=== PATIENT | female | born 1960 | race Caucasian/White ===

== ENCOUNTER → 2017-05-07 | Outpatient (CLI) | payer BC ==
--- NOTE | 2017-05-07 10:53 | P.HPOB ---
History of Present Illness H&P Date: 05/07/17 Chief Complaint: The patient is here for her routine gynecologic exam and mammogram. This is a 57-year-old with Christiano. 2000. She is status post DUNCAN BSO for benign reasons. The patient is on low-dose ERT for menopausal symptoms. She decreased her Estrace to 0.5 mg every other day. She states she has been doing fairly well with this. She does have occasional emotional changes in this is the main reason she continues to take ERT. She is otherwise without gynecologic complaints. Review of Systems She is gained about 15 pounds over the last 2 years. She denies respiratory, cardiac, or G.I. problems. Past Medical History Past Medical History: Hyperlipidemia Past Surgical History: Appendectomy, Section, Hysterectomy (DUNCAN BSO in 1999) Smoking Status: Former smoker Past Alcohol Use History: Daily (She has up to 4 bottles of wine per week.) Past Drug Use History: None Reported Medications and Allergies Home Medications and Allergies Comment(s): Estradiol 0.5 mg 1 every other day. Calcium with vitamin D daily Exam - Vital Signs Vital signs: Blood pressure 113/74, height 5 feet 6 inches, weight 157 pounds, tension 97.4, pulse 65. This is a well-developed well-nourished white female who is alert and oriented times 3 in no acute distress. HEENT: Within normal limits. NECK: Supple without mass or thyromegaly. CHEST AND LUNGS: Clear to auscultation. HEART: Regular rate and rhythm. BREASTS: Are without mass or discharge. AXILLARY EXAM: Negative for adenopathy. BACK: Negative for CVA tenderness. ABDOMEN: Soft, nontender, without palpable masses. PELVIC EXAM: Normal external genitalia with minimal atrophy. Vagina appear normal with minimal atrophy. There is no unusual discharge. There are no palpable adnexal masses or tenderness. RECTAL EXAM: recto vaginal exam is negative for mass or tenderness and is negative for occult blood. EXTREMITIES: Nontender. IMPRESSION: 1. 57-year-old menopausal female who is status post DUNCAN BSO for benign reasons. 2. Doing well on low-dose ERT for menopausal symptoms which include emotional changes. 3. History of elevated cholesterol. PLAN: 1. Pap smears have been discontinued. 2. Self breast examination was discussed. 3. Mammogram will be done today. 4. Lab studies will include fasting lipid profile and comprehensive chemistry panel. 5. I have recommended that she decrease alcohol consumption. 6. I recommended screening colonoscopy and Dr. Vines's name was given to the patient for this. 7. She will try to wean off of ERT over the upcoming year. 8. She will return in one year. 9. I recommended that she established with a primary care physician.
[2017-05-07 11:58] LABS: ALT 38 U/L (9-52); AST 27 U/L (14-36); Alkaline Phosphatase 65 U/L (38-126); Anion Gap 12 mmol/L; Blood Urea Nitrogen 9 mg/dL (7-17); Calcium 10.1 mg/dL (8.4-10.2); Carbon Dioxide 28 mmol/L (22-30); Chloride 98 mmol/L (98-107); Cholesterol 263 mg/dL (<200); Glucose 90 mg/dL (74-99); HDL Cholesterol 89 mg/dL (40-60); Non-African American GFR(MDRD) >60 (>60 ml/min/1.73 sqM); Sodium 138 mmol/L (137-145); Total Bilirubin 0.7 mg/dL (0.2-1.3); Total Protein 7.8 g/dL (6.3-8.2)
--- NOTE | 2017-05-09 09:48 | MM ---
Reason for exam: screening (asymptomatic). Last mammogram was performed 1 year and 5 months ago. History: Patient is postmenopausal. Family history of premenopausal breast cancer in grandmother at age 45. Taking estrogen for 14 years 9 months beginning at age 40. Physical Findings: A clinical breast exam by your physician is recommended on an annual basis and results should be correlated with mammographic findings. MG Screening Mammo w CAD Bilateral CC and MLO view(s) were taken. Prior study comparison: November 23, 2015, bilateral MG screening mammo w CAD. October 06, 2014, bilateral MG screening mammo w CAD. September 23, 2013, bilateral digital screening mammo w/CAD. The breast tissue is heterogeneously dense. This may lower the sensitivity of mammography. No significant changes when compared with prior studies. ASSESSMENT: Negative, BI-RAD 1 RECOMMENDATION: Routine screening mammogram of both breasts in 1 year.
== END | disposition home or self-care (01) ==
LOC: WWCWWP 09:50
PROVIDERS: ATTEND Obstetrics & Gynecology
DX: Z12.31 Encounter for screening mammogram for malignant neoplasm of breast (principal); Z00.00 Encounter for general adult medical examination without abnormal findings; E78.5 Hyperlipidemia, unspecified
CPT/HCPCS: 80061; 80053; G0202

== ENCOUNTER → 2018-07-29 | Outpatient (CLI) | payer BC ==
[2018-07-29 08:08] VITALS: PULSE 54; TEMP 97.6; BMI 25.8
[2018-07-29 08:13] VITALS: BP 124/77
--- NOTE | 2018-07-29 08:53 | P.HPOB ---
History of Present Illness H&P Date: 07/29/18 Chief Complaint: The patient is here for her routine gynecologic exam and mammogram. This is a 58-year-old with an LMP of 2000. The patient is status post DUNCAN BSO for benign reasons. The patient was on low-dose ERT in the form of Estrace 0.5 mg every other day, however, she states she was having increased crying spells and she felt she was feeling mentally less sharp so she increased ERT to daily. She states she noticed an improvement in her emotional changes and mental sharpness. She increased it to daily about 3 weeks ago. She is otherwise without gynecologic complaints. Review of Systems The patient has gained 3 pounds over the last year. She denies respiratory or cardiac problems. G.I.: occasional nausea in the morning but she has had this for many years. She feels that drinking wine seems to help with this symptom. 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 She has no other history of STDs. She is status post DUNCAN BSO for endometriosis. 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 - Past Family History Father Family Medical History: Coronary Artery Disease (CAD), Dementia Mother Family Medical History: Cancer (Lymphoma) Additional Family Medical History / Comment(s): A grandmother had breast cancer. Medications and Allergies Home Medications Medication Instructions Recorded Confirmed Type Calcium Carbonate [Calcium] 600 mg PO DAILY 07/29/18 07/29/18 History Cholecalciferol [Vitamin D3] 1,000 unit PO DAILY 07/29/18 07/29/18 History Estradiol 0.5 mg PO DAILY 07/29/18 07/29/18 History Allergies Allergy/AdvReac Type Severity Reaction Status Date / Time No Known Allergies Allergy Unverified 07/29/18 08:01 Exam Vital Signs Temp Pulse BP 07/29/18 08:11 97.6 F 54 L 124/77 07/29/18 08:06 97.6 F 54 L Intake and Output 07/28/18 07/29/18 07/29/18 22:59 06:59 14:59 Other: Weight 72.575 kg Height 5'6", weight 160 pounds, BMI 25.8. This is a well-developed well-nourished white female who is alert and oriented times 3 in no acute distress. HEENT: Within normal limits. NECK: Supple without mass or thyromegaly. CHEST AND LUNGS: Clear to auscultation. HEART: Regular rate and rhythm. BREASTS: Are without mass or discharge. AXILLARY EXAM: Negative for adenopathy. BACK: Negative for CVA tenderness. ABDOMEN: Soft, nontender, without palpable masses. PELVIC EXAM: External genitalia appears normal with minimal atrophy. Vagina appears normal with minimal atrophy. There is no evidence of prolapse. Bimanual examination is negative for mass or tenderness. RECTAL EXAM: Rectovaginal exam is negative for mass or tenderness and is negative for occult blood. EXTREMITIES: Nontender. IMPRESSION: 1. 58-year-old menopausal female status post DUNCAN BSO for benign reasons with normal gynecologic exam. 2. The patient is on low-dose ERT for menopausal symptoms which include emotional changes. She had worsening symptoms that improved with change of ERT to one daily. PLAN: 1. Pap smears have been discontinued. 2. Self breast awareness. 3. Screening mammogram will be done today. 4. Osteoporosis prevention was discussed. 5. We had a long discussion regarding ERT including the possible slight increased risk for stroke. She will continue Estrace 0.5 mg daily at this time , but she will try to again wean off of it prior to her next annual visit. The prescription for ERT [facility]. 6. I have that she established with a primary care physician. She states she will do this before the end of the year. I also recommended that she follow up with that primary care physician for cholesterol testing and to arrange for a screening colonoscopy. I have recommended screening colonoscopy based on her age. 7. She will return in one year.
[2018-07-29 18:55] LABS: LDL Cholesterol,Calculated 132.2 mg/dL (0.0-131.0); VLDL Calculation 38.8 mg/dL (5.00-40.00)
--- NOTE | 2018-07-31 08:20 | MM ---
Reason for exam: screening (asymptomatic). Last mammogram was performed 1 year and 3 months ago. History: Patient is postmenopausal. Family history of premenopausal breast cancer in grandmother at age 45. Taking estrogen for 14 years 9 months beginning at age 40. Physical Findings: A clinical breast exam by your physician is recommended on an annual basis and results should be correlated with mammographic findings. MG 3D Screening Mammo W/Cad Bilateral CC and MLO view(s) were taken. Prior study comparison: May 07, 2017, bilateral MG screening mammo w CAD. November 23, 2015, bilateral MG screening mammo w CAD. The breast tissue is heterogeneously dense. This may lower the sensitivity of mammography. There is no discrete abnormality. ASSESSMENT: Negative, BI-RAD 1 RECOMMENDATION: Routine screening mammogram of both breasts in 1 year.
== END | disposition home or self-care (01) ==
LOC: WWCWWP 07:53
PROVIDERS: ATTEND Obstetrics & Gynecology
DX: Z12.31 Encounter for screening mammogram for malignant neoplasm of breast (principal); Z00.00 Encounter for general adult medical examination without abnormal findings; E87.0 Hyperosmolality and hypernatremia; E78.5 Hyperlipidemia, unspecified
CPT/HCPCS: 36415; 77063; 77067; 80061

== ENCOUNTER → 2019-11-10 | Outpatient (CLI) | payer BC ==
[2019-11-10 09:43] VITALS: BP 123/73; PULSE 57; RESP 18; TEMP 97.8
--- NOTE | 2019-11-10 10:24 | P.HPOB ---
History of Present Illness H&P Date: 11/10/19 Chief Complaint: The patient is here for her routine gynecologic exam and ma mmogram. This is a 59-year-old with an LMP of 2000. The patient is status post DUNCAN/BSO for benign reasons. The patient continues to take low-dose ERT in the form of Estrace 0.5 mg daily. She try to wean off earlier in the year and after 3 months of taking it every other day, she noticed increased crying and loss of focus. She states this improved after she went back to taking it daily. She is without gynecologic complaints. She still has not establish with a primary care physician. Review of Systems The patient has lost 10 pounds over the last year. She denies respiratory, cardiac, or G.I. problems. 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 She has no other history of STDs. She is status post DUNCAN BSO for endometriosis. History of Any Multi-Drug Resistant Organisms: None Reported Past Surgical History: Appendectomy, Section, Hysterectomy Additional Past Surgical History / Comment(s): DUNCAN/BSO in 1999. 1. Past Psychological History: No Psychological Hx Reported Smoking Status: Former smoker Past Alcohol Use History: Occasional (About 8 glasses of wine per week.) Additional Past Alcohol Use History / Comment(s): She quit smoking in 1986. 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 - Past Family History Father Family Medical History: Coronary Artery Disease (CAD), Dementia Mother Family Medical History: Cancer Additional Family Medical History / Comment(s): Lymphoma. A grandmother had breast cancer. Medications and Allergies Home Medications Medication Instructions Recorded Confirmed Type Calcium Carbonate [Calcium] 600 mg PO DAILY 07/29/18 11/10/19 History Cholecalciferol [Vitamin D3] 1,000 unit PO DAILY 07/29/18 11/10/19 History Estradiol 0.5 mg PO DAILY #90 tablet 07/29/18 11/10/19 Rx Celery Seed 1 tab PO DAILY 11/10/19 History Cyanocobalamin [Vitamin B-12] 500 mcg PO DAILY 11/10/19 11/10/19 History Fish Oil/Dha/Epa [Fish Oil 1,200 1 each PO 11/10/19 History mg Fish Oil] Tumeric 1 tab PO DAILY 11/10/19 History Allergies Allergy/AdvReac Type Severity Reaction Status Date / Time No Known Allergies Allergy Unverified 11/10/19 09:43 Exam Vital Signs Temp Pulse Resp BP Pulse Ox 11/10/19 09:40 97.8 F 57 L 18 123/73 99 Intake and Output 11/09/19 11/10/19 11/10/19 22:59 06:59 14:59 Other: Weight 68.039 kg Height 5 feet 5 inches, weight 150 pounds, BMI 25.0. This is a well-developed well-nourished white female who is alert and oriented times 3 in no acute distress. HEENT: Within normal limits. NECK: Supple without mass or thyromegaly. CHEST AND LUNGS: Clear to auscultation. HEART: Regular rate and rhythm. BREASTS: Are without mass or discharge. AXILLARY EXAM: Negative for adenopathy. BACK: Negative for CVA tenderness. ABDOMEN: Soft, nontender, without palpable masses. PELVIC EXAM: External genitalia appears normal with mild atrophy. Vagina appears normal with mild atrophy. There is no evidence of prolapse. Bimanual ex amination is negative for mass or tenderness. RECTAL EXAM: Rectovaginal exam is negative for mass or tenderness and is negative for occult blood. EXTREMITIES: Nontender. IMPRESSION: 1. 59-year-old menopausal female status post DUNCAN/BSO for benign reasons, with normal gynecologic exam. 2. On low-dose ERT for menopausal symptoms. She had worsening of symptoms when she try to wean off of it this year. PLAN: 1. Pap smears have been discontinued. 2. Self breast awareness was discussed with the patient. 3. Screening mammogram will be done today. 4. Osteoporosis prevention was discussed. I have stressed the importance of adequate calcium, vitamin D and regular exercise. Recommended amounts of calcium and vitamin D were also discussed. 5. I have recommended screening colonoscopy since she has not had this done. Names of physicians that can do screening colonoscopies were given to the patient. I have also recommended that she establish with a primary care physician. She states she will look into doing this. 6. She is requesting screening blood work and she is fasting. The following will be done today: Fasting lipid profile, comprehensive chem panel, and CBC. 7. She will again try to wean off from ERT this year. I have recommended that she try skipping every third day and if she is successful with this, she can go to every other day and eventually off. She states she would like to be able to wean off in the near future. The electronic prescription will be sent to [facility]. 8. She was advised to return in one year for her annual well woman exam.
[2019-11-10 11:29] LABS: HCT 39.9 % (34.0-46.0); HGB 13.3 gm/dL (11.4-16.0); MCH 31.8 pg (25.0-35.0); MCHC 33.3 g/dL (31.0-37.0); MCV 95.6 fL (80.0-100.0); Mean Platelet Volume 7.6; Platelet Count 302 k/uL (150-450); RBC 4.18 m/uL (3.80-5.40); RDW 12.3 % (11.5-15.5); WBC 5.8 k/uL (3.8-10.6)
[2019-11-10 17:11] LABS: African American GFR (CKD) 94.9 (60.0-200.0); Albumin 4.4 g/dL (3.80-4.90); Albumin/Globulin Ratio 1.91 (1.60-3.17); Anion Gap 8.3 mmol/L (4.00-12.00); Calcium 9.8 mg/dL (8.7-10.3); Carbon Dioxide 27.7 mmol/L (21.6-31.8); Globulin 2.3 g/dL (1.6-3.3); Non-African American GFR(CKD) 81.8 (60.0-200.0); Potassium 4.7 mmol/L (3.5-5.5); Total Bilirubin 0.5 mg/dL (0.2-1.2); Total Protein 6.7 g/dL (6.2-8.2)
[2019-11-10 17:12] LABS: Chol/HDL Ratio 2.89; LDL Cholesterol,Calculated 101.2 mg/dL (0.0-131.0); VLDL Calculation 51.8 mg/dL (5.00-40.00)
--- NOTE | 2019-11-11 08:25 | MM ---
Reason for exam: screening (asymptomatic). Last mammogram was performed 1 year and 3 months ago. History: Patient is postmenopausal. Family history of premenopausal breast cancer in grandmother at age 45. Taking estrogen for 14 years 9 months beginning at age 40. Physical Findings: A clinical breast exam by your physician is recommended on an annual basis and results should be correlated with mammographic findings. MG Screening Mammo w CAD Bilateral CC and MLO view(s) were taken. Prior study comparison: July 29, 2018, bilateral MG 3d screening mammo w/cad. May 07, 2017, bilateral MG screening mammo w CAD. The breast tissue is heterogeneously dense. This may lower the sensitivity of mammography. There is no discrete abnormality. No significant changes when compared with prior studies. ASSESSMENT: Negative, BI-RAD 1 RECOMMENDATION: Routine screening mammogram of both breasts in 1 year.
== END | disposition home or self-care (01) ==
LOC: WWCWWP 09:18
PROVIDERS: ATTEND Obstetrics & Gynecology
DX: Z12.31 Encounter for screening mammogram for malignant neoplasm of breast (principal)
CPT/HCPCS: 36415; 77067; 80053; 80061; 85027

== ENCOUNTER → 2021-01-11 | Outpatient (CLI) | payer BC ==
[2021-01-11 10:57] VITALS: BP 116/73; PULSE 68; RESP 18; TEMP 97.9
--- NOTE | 2021-01-11 11:51 | P.HPOB ---
History of Present Illness H&P Date: 01/11/21 Chief Complaint: The patient is here for her routine gynecologic exam and ma mmogram. This is a 60-year-old with an LMP of 2000. The patient is status post DUNCAN/BSO for benign reasons. The patient continues to be on low-dose ERT in the form of estradiol transdermal patches 0.025 mg changed twice weekly. She states that when she decreases her estrogen dose, she tends to get weepy very easily and she does not feel that this is a very good time to wean off of the ERT because of increased stress in her life. She is without gynecologic complaints. She is not sexually active. Review of Systems The patient has gained 6 pounds over the last year. She denies respiratory, cardiac, or G.I. problems. 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 She has no other history of STDs. She is status post DUNCAN BSO for endometriosis. History of Any Multi-Drug Resistant Organisms: None Reported Past Surgical History: Appendectomy, Section, Hysterectomy Additional Past Surgical History / Comment(s): DUNCAN/BSO in 1999. 1. Past Psychological History: No Psychological Hx Reported Smoking Status: Former smoker Past Alcohol Use History: Occasional (9 drinks per week) Additional Past Alcohol Use History / Comment(s): She quit smoking in 1986. Past Drug Use History: None Reported Additional History: She has been since 1984. She states there have been some marital difficulties and they are not sexually active. 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 - Past Family History Father Family Medical History: Coronary Artery Disease (CAD), Dementia Mother Family Medical History: Cancer Additional Family Medical History / Comment(s): Lymphoma. A grandmother had breast cancer. Medications and Allergies Home Medications Medication Instructions Recorded Confirmed Type Calcium Carbonate [Calcium] 600 mg PO DAILY 07/29/18 01/11/21 History Cholecalciferol [Vitamin D3] 1,000 unit PO DAILY 07/29/18 01/11/21 History Celery Seed 1 tab PO DAILY 11/10/19 01/11/21 History Cyanocobalamin [Vitamin B-12] 500 mcg PO DAILY 11/10/19 01/11/21 History Fish Oil/Dha/Epa [Fish Oil 1,200 1 each PO DAILY 11/10/19 01/11/21 History mg Fish Oil] Tumeric 1 tab PO DAILY 11/10/19 01/11/21 History Estradiol 0.05MG/24Hr Biwkptch 1 patch TRANSDERM Q84H 84 Days #12 11/17/19 01/11/21 Rx [Vivelle-Dot 0.05 MG] patch Allergies Allergy/AdvReac Type Severity Reaction Status Date / Time No Known Allergies Allergy Unverified 01/11/21 10:48 Exam Vital Signs Temp Pulse Resp BP Pulse Ox 01/11/21 10:51 97.9 F 68 18 116/73 99 Intake and Output 01/10/21 01/11/21 01/11/21 22:59 06:59 14:59 Other: Weight 70.76 kg Height 5 feet 5-1/2 inches, weight 156 pounds, BMI 25.6. This is a well-developed well-nourished white female who is alert and oriented times 3 in no acute distress. HEENT: Within normal limits. NECK: Supple without mass or thyromegaly. CHEST AND LUNGS: Clear to auscultation. HEART: Regular rate and rhythm. BREASTS: Are without mass or discharge. AXILLARY EXAM: Negative for adenopathy. BACK: Negative for CVA tenderness. ABDOMEN: Soft, nontender, without palpable masses. PELVIC EXAM: External genitalia appears normal with minimal atrophy. Vagina appears normal with minimal atrophy. There is no evidence of prolapse. Bimanual examination is negative for mass or tenderness. RECTAL EXAM: Rectovaginal exam is negative for mass or tenderness and is negative for occult blood. EXTREMITIES: Nontender. IMPRESSION: 1. 60-year-old menopausal female doing well on low-dose ERT in the form of transdermal estradiol 0.025 mg changed twice weekly. 2. Normal gynecologic exam. PLAN: 1. Pap smears have been discontinued. 2. Self breast awareness was discussed with the patient. 3. Screening mammogram will be done today. 4. We have had a long discussion regarding ERT. I have asked her to again try to wean down to the lowest effective dose and hopefully gradually wean off of ERT. We have discussed possible risks including the possible increased risk for blood clots and stroke on ERT. She understands these things and would like to wean off of ERT eventually, but because of stress in her life she does not feel that this is a good time to wean off of ERT. The electronic prescription for the transdermal estradiol patch will be sent to [facility]. 5. She states she plans on establishing with a primary care physician within the upcoming month. She plans on having blood work done including lipid profile through her PCP. She is aware that I feel that this testing is important since she does have a history of elevated cholesterol and elevated triglycerides. The reason I have changed her from oral ERT to transdermal ERT was to see if this would lower her triglycerides. I have offered or during the lipid profile, but she states she will do this with her PCP when she establishes with that person in the very near future. 6. I have also recommended screening colonoscopy which she states she will do through her PCP, once established. 7. Osteoporosis prevention was discussed. I have stressed the importance of adequate calcium, vitamin D and regular exercise. Recommended amounts of calcium and vitamin D were also discussed. I have recommended bone density testing at the age of 62. 8. She was advised to return in one year for her annual well woman exam.
--- NOTE | 2021-01-12 14:06 | MM ---
Reason for exam: screening (asymptomatic). Last mammogram was performed 1 year and 2 months ago. History: Patient is postmenopausal. Family history of premenopausal breast cancer in grandmother at age 45. Taking estrogen for 14 years 9 months beginning at age 40. Physical Findings: A clinical breast exam by your physician is recommended on an annual basis and results should be correlated with mammographic findings. MG Screening Mammo w CAD Bilateral CC and MLO view(s) were taken. Prior study comparison: November 10, 2019, bilateral MG screening mammo w CAD. July 29, 2018, bilateral MG 3d screening mammo w/cad. The breast tissue is heterogeneously dense. This may lower the sensitivity of mammography. Benign appearing calcifications in the right breast. No significant changes when compared with prior studies. ASSESSMENT: Benign, BI-RAD 2 RECOMMENDATION: Routine screening mammogram of both breasts in 1 year.
== END | disposition home or self-care (01) ==
LOC: WWCWWP 10:43
PROVIDERS: ATTEND Obstetrics & Gynecology
DX: Z01.419 Encounter for gynecological examination (general) (routine) without abnormal findings (principal); Z12.31 Encounter for screening mammogram for malignant neoplasm of breast; E78.5 Hyperlipidemia, unspecified; Z80.3 Family history of malignant neoplasm of breast; Z87.891 Personal history of nicotine dependence
CPT/HCPCS: 77067

== ENCOUNTER → 2022-02-20 | Outpatient (CLI) | payer BC ==
[2022-02-20 12:49] VITALS: BP 116/66; PULSE 72; RESP 17; TEMP 98.1
--- NOTE | 2022-02-20 13:32 | P.HPOB ---
History of Present Illness H&P Date: 02/20/22 Chief Complaint: The patient is here for her routine gynecologic exam and ma mmogram. This is a 61-year-old with an LMP of 2000. The patient is status post DUNCAN/BSO for benign reasons. She continues to be on low-dose ERT in the form of estradiol 0.025 patches. She was changing them every 3 days and try to wean changing them twice a week and she did fine with this. She try to do it every 4 days, but this lead to symptoms. Her main symptom that is improved with ERT is emotional changes and she does cry very easily at those times. She seems to be doing well with changing it 2 times per week. She now has a primary care physician. Lipid profiles have been done and her most recent one shows a triglyceride of approximately 80. This is much improved compared to when she was taking oral estrogen. She is without gynecologic complaints. Review of Systems The patient has lost 9 pounds over the last year. She denies respiratory, cardiac, or G.I. problems. 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 She has no other history of STDs. She is status post DUNCAN BSO for endometriosis. History of Any Multi-Drug Resistant Organisms: None Reported Past Surgical History: Appendectomy, Section, Hysterectomy Additional Past Surgical History / Comment(s): DUNCAN/BSO in 1999. 1. Colonoscopy 2020(next after 5yr). Past Psychological History: No Psychological Hx Reported Smoking Status: Former smoker Past Alcohol Use History: Occasional Additional Past Alcohol Use History / Comment(s): She quit smoking in 1986. Past Drug Use History: None Reported Additional History: She has been since 1984 and they are not sexually active in their relationship. 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 - Past Family History Father Family Medical History: Coronary Artery Disease (CAD), Dementia Mother Family Medical History: Cancer Additional Family Medical History / Comment(s): Lymphoma. A grandmother had breast cancer. Medications and Allergies Home Medications Medication Instructions Recorded Confirmed Type Calcium Carbonate [Calcium] 600 mg PO DAILY 07/29/18 02/20/22 History Cholecalciferol [Vitamin D3] 1,000 unit PO DAILY 07/29/18 02/20/22 History Celery Seed 1 tab PO DAILY 11/10/19 02/20/22 History Cyanocobalamin [Vitamin B-12] 500 mcg PO DAILY 11/10/19 02/20/22 History Fish Oil/Dha/Epa [Fish Oil 1,200 1 each PO DAILY 11/10/19 02/20/22 History mg Fish Oil] Tumeric 1 tab PO DAILY 11/10/19 02/20/22 History Estradiol 0.05MG/24Hr Biwkptch 1 patch TRANSDERM Q84H 84 Days #12 01/11/21 02/20/22 Rx [Vivelle-Dot 0.05 MG] patch Allergies Allergy/AdvReac Type Severity Reaction Status Date / Time No Known Allergies Allergy Unverified 02/20/22 12:40 Exam Vital Signs Temp Pulse Resp BP Pulse Ox 02/20/22 12:46 98.1 F 72 17 116/66 98 Intake and Output 02/19/22 02/20/22 02/20/22 22:59 06:59 14:59 Other: Weight 65.771 kg Height 5 feet 6 inches, weight 145 pounds, BMI 23.4. This is a well-developed well-nourished white female who is alert and oriented times 3 in no acute distress. HEENT: Within normal limits. NECK: Supple without mass or thyromegaly. CHEST AND LUNGS: Clear to auscultation. HEART: Regular rate and rhythm. BREASTS: Are without mass or discharge. AXILLARY EXAM: Negative for adenopathy. BACK: Negative for CVA tenderness. ABDOMEN: Soft, nontender, without palpable masses. PELVIC EXAM: External genitalia appears normal with mild atrophy. Vagina appears normal mild atrophy. There is no evidence of prolapse. Bimanual examination is negative for mass or tenderness. RECTAL EXAM: Rectovaginal exam is negative for mass or tenderness and is negative for occult blood. EXTREMITIES: Nontender. IMPRESSION: 1. 61-year-old menopausal female status post DUNCAN/BSO for for benign reasons, with normal gynecologic exam. 2. Doing well on transdermal low-dose ERT. When she tried to wean down from the ERT, she had worsening emotional changes. PLAN: 1. Pap smears have been discontinued. 2. Self breast awareness was discussed with the patient. We have also discussed symptoms associated with inflammatory breast cancer. 3. Screening mammogram will be done today. 4. Continue estradiol 0.025 mg patches changed twice weekly. The electronic prescription will be sent to [facility]. 5. Osteoporosis prevention was discussed. I have stressed the importance of adequate calcium, vitamin D and regular exercise. Recommended amounts of calcium and vitamin D were also discussed. We will plan on doing bone density testing in 1 year. 6. She has completed her Covid vaccination series, but did not receive a booster. 7. She will continue to try to wean from the ERT. She was advised to return in one year for her annual well woman exam.
== END ==
LOC: WWCWWP 12:34
PROVIDERS: ATTEND Obstetrics & Gynecology
DX: Z01.419 Encounter for gynecological examination (general) (routine) without abnormal findings (principal); Z12.31 Encounter for screening mammogram for malignant neoplasm of breast; Z90.710 Acquired absence of both cervix and uterus; Z90.722 Acquired absence of ovaries, bilateral; Z80.3 Family history of malignant neoplasm of breast; Z79.890 Hormone replacement therapy; F39 Unspecified mood [affective] disorder; E78.5 Hyperlipidemia, unspecified; Z87.891 Personal history of nicotine dependence
CPT/HCPCS: 77067

== ENCOUNTER → 2023-03-26 | Outpatient (CLI) | payer BC ==
[2023-03-26 10:49] VITALS: BP 109/75; PULSE 57; RESP 16; TEMP 98.3
--- NOTE | 2023-03-26 12:21 | P.HPOB ---
History of Present Illness H&P Date: 03/26/23 Chief Complaint: The patient is here for her routine gynecologic exam and ma mmogram. This is a 70-year-old with an LMP of 2000. The patient is status post DUNCAN/BSO for benign reasons. She continues to use a low-dose ERT in the form of estradiol 0.025 patches changed twice weekly. She has tried weaning by using half a patch twice weekly, but she states she noticed increased sadness and emotional changes when she tried to wean down. She has gone back to the origin al dose with improvement of these emotional changes. She is without gynecologic complaints at this time. Review of Systems The patient has lost 13 pounds over the last year. She attributes this to eating healthier. She denies respiratory, cardiac, or G.I. problems. Past Medical History Past Medical History: Cancer, Hyperlipidemia Additional Past Medical History / Comment(s): SKIN CANCER removed from the right arm 2022. 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 She has no other history of STDs. She is status post DUNCAN BSO for endometriosis. History of Any Multi-Drug Resistant Organisms: None Reported Past Surgical History: Appendectomy, Section, Hysterectomy Additional Past Surgical History / Comment(s): DUNCAN/BSO in 1999. 1. Colonoscopy 2020(next after 5yr). SKIN CANCER REMOVAL RIGHT ELBOW. Past Psychological History: No Psychological Hx Reported Smoking Status: Former smoker Past Alcohol Use History: Occasional (10 per week) Additional Past Alcohol Use History / Comment(s): She quit smoking in 1986. Past Drug Use History: None Reported Additional History: She has been since 1984 and they are not sexually active in their relationship. 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 - Past Family History Father Family Medical History: Coronary Artery Disease (CAD), Dementia Mother Family Medical History: Cancer Additional Family Medical History / Comment(s): Lymphoma. A grandmother had breast cancer. Medications and Allergies Home Medications Medication Instructions Recorded Confirmed Type Calcium Carbonate [Calcium] 600 mg PO DAILY 07/29/18 03/26/23 History Cholecalciferol [Vitamin D3] 1,000 unit PO DAILY 07/29/18 03/26/23 History Celery Seed 1 tab PO DAILY 11/10/19 03/26/23 History Cyanocobalamin [Vitamin B-12] 500 mcg PO DAILY 11/10/19 03/26/23 History Fish Oil/Dha/Epa [Fish Oil 1,200 1 each PO DAILY 11/10/19 03/26/23 History mg Fish Oil] Tumeric 1 tab PO DAILY 11/10/19 03/26/23 History estradioL [estradioL (Twice 1 patch TRANSDERM DIRECTED #24 02/20/22 03/26/23 Rx Weekly) 0.025 mg Patch] patch Magnesium Oxide [Magnesium] 500 mg PO DAILY 03/26/23 03/26/23 History Allergies Allergy/AdvReac Type Severity Reaction Status Date / Time No Known Allergies Allergy Unverified 03/26/23 10:42 Exam Vital Signs Temp Pulse Resp BP Pulse Ox 03/26/23 10:46 98.3 F 57 L 16 109/75 100 Intake and Output 03/25/23 03/26/23 03/26/23 22:59 06:59 14:59 Other: Weight 59.874 kg Height 5 feet 6 inches, weight 132 pounds, BMI 21.3. This is a well-developed well-nourished white female who is alert and oriented times 3 in no acute distress. HEENT: Within normal limits. NECK: Supple without mass or thyromegaly. CHEST AND LUNGS: Clear to auscultation. HEART: Regular rate and rhythm. BREASTS: Are without mass or discharge. AXILLARY EXAM: Negative for adenopathy. BACK: Negative for CVA tenderness. ABDOMEN: Soft, nontender, without palpable masses. PELVIC EXAM: External genitalia appears normal with mild atrophy. Vagina appears normal with mild atrophy. There is no evidence of prolapse. Bimanual examination is negative for mass or tenderness. RECTAL EXAM: Rectovaginal exam is negative for mass or tenderness and is negative for occult blood. EXTREMITIES: Nontender. IMPRESSION: 1. 62-year-old menopausal female status post DUNCAN/BSO for benign reasons, with normal gynecologic exam. 2. Doing well on low-dose trans-dermal ERT. She try to wean down from the ERT this past year and had worsening emotional changes. PLAN: 1. Pap smears have been discontinued per 2. Self breast awareness was discussed with the patient. We have also discussed symptoms associated with inflammatory breast cancer. 3. Screening mammogram will be done today. 4. Osteoporosis prevention was discussed. I have stressed the importance of adequate calcium, vitamin D and regular exercise. Recommended amounts of calcium and vitamin D were also discussed. Bone density testing will be done today and this will be a baseline study. 5. Continue to use estradiol transdermal patches, 0.025 mg changed twice weekly. The electronic prescription will be sent to [facility] for the upcoming year. She will again try to attempt a very gradual wean in the upcoming year. She can start by changing the patch every 4 days instead of twice weekly. 6. She was advised to return in one year for her annual well woman exam and as needed.
--- NOTE | 2023-03-26 15:03 | BD ---
EXAMINATION TYPE: Axial Bone Density DATE OF EXAM: 03/26/2023 CLINICAL HISTORY: 62 years old Female. ICD-10 CODE: Z78.0 POST MENOPAUSAL Height: 66 Weight: 133.2 FRAX RISK QUESTIONS: Alcohol (3 or more units per day): no Family History (Parent hip fracture): no Glucocorticoids (More than 3mos): no (Ex: prednisone, prednisolone, methylprednisolone, dexamethasone, and hydrocortisone). History of Fracture in Adulthood: no Secondary Osteoporosis: 1. Type 1 Diabetes: no 2. Hyperthyroidism: no 3. Menopause before 45: yes 4. Malnutrition: no 5. Chronic liver disease: no Rheumatoid Arthritis: no Current Tobacco Use: no RISK FACTORS HISTORY OF: History of Wrist Fracture: right When: 8 th grade Surgery to Spine/Hip(right/left)/Wrist (right/left): no Family History of Osteoporosis: no Active: yes Diet low in dairy products/other sources of calcium: no Postmenopausal woman: yes Take estrogen and/or progesterone medications: yes How lon years Lost more than 2 inches in height since high school: no MEDICATIONS: Additional History: EXAM MEASUREMENTS: Bone mineral densitometry was performed using the [employer] System. Bone mineral density as measured about the Lumbar spine is: ----- L1-L4(G/cm2): 0.930 T Score Values are as follows: ----- L1: -2.3 ----- L2: -2.5 ----- L3: -2.1 ----- L4: -1.8 ----- L1-L4: -2.1 Z Score Values are as follows: ----- L1: -0.9 ----- L2: -1.1 ----- L3: -0.7 ----- L4: -0.4 ----- L1-L4: -0.7 Bone mineral density : baseline Bone mineral density about the R hip (g/cm2): 0.849 Bone mineral density about the L hip (g/cm2): 0.895 T Score values are as follows: -----R Neck: -2.1 -----L Neck: -1.7 -----R Total: -1.3 -----L Total: -0.9 Z Score values are as follows: -----R Neck: -0.7 -----L Neck: -0.3 -----R Total: -0.2 -----L Total: 0.2 Bone mineral density : baseline FRAX%s: The graph provided illustrates a 9.3% chance for a major osteoporotic fx and a 1.3% chance fo r the hips probability for fx in 10 years time. IMPRESSION: Osteoporosis (T Score less than -2.5). There is increased fracture risk and therapy is usually indicated based on age. Re-Screen 1-2 years. NOTE: T-SCORE=SD OF THE YOUNG ADULT MEAN.
--- NOTE | 2023-03-27 12:37 | MM ---
Reason for Exam: Screening (asymptomatic). Last mammogram was performed 1 year(s) and 1 month(s) ago. Patient History: Menarche at age 15. First Full-Term at age 27. Left ovary removed at age 41. Right ovary removed at age 41. Hysterectomy at age 41. Postmenopausal. Patient has history of breast feeding. Currently using Estrogen, beginning at age 40 for 14 years, 9 months. Maternal grandmother had breast cancer, age 45. Risk Values: Brandee 5 year model risk: 1.6%. NCI Lifetime model risk: 8.1%. Prior Study Comparison: 11/10/2019 Bilateral Screening Mammogram, [facility]. 01/11/2021 Bilateral Screening Mammogram, [facility]. 02/20/2022 Bilateral MG screening mammo w CAD, [facility]. Tissue Density: The breast tissue is heterogeneously dense. This may lower the sensitivity of mammography. Findings: Analyzed By CAD. Pattern appears symmetrical and stable. No significant interval change No suspicious groups of microcalcifications, spiculated or lobular masses, architectural distortion or other secondary signs of malignancy are mammographically apparent. Overall Assessment: Benign, BI-RAD 2 Management: Screening Mammogram of both breasts in 1 year. A negative mammogram report should not preclude additional follow up of suspicious palpable abnormalities. Patient should continue monthly self breast exam. A clinical breast exam by your physician is recommended on an annual basis and results should be correlated with mammographic findings. Electronically signed and approved by: Angel Parker D.O. Radiologis
== END ==
LOC: WWCWWP 10:35
PROVIDERS: ATTEND Obstetrics & Gynecology
DX: Z12.31 Encounter for screening mammogram for malignant neoplasm of breast (principal); Z13.820 Encounter for screening for osteoporosis; Z80.3 Family history of malignant neoplasm of breast; Z85.828 Personal history of other malignant neoplasm of skin; Z87.891 Personal history of nicotine dependence; Z90.49 Acquired absence of other specified parts of digestive tract; Z90.710 Acquired absence of both cervix and uterus; Z90.722 Acquired absence of ovaries, bilateral; Z78.0 Asymptomatic menopausal state
CPT/HCPCS: 77063; 77067; 77080

== ENCOUNTER → 2024-06-03 | Outpatient (CLI) | payer BC ==
[2024-06-03 10:42] VITALS: BP 124/80; PULSE 59; RESP 15; TEMP 97.9
--- NOTE | 2024-06-03 11:22 | P.HPOB ---
History of Present Illness H&P Date: 06/03/24 Chief Complaint: The patient is here for her routine gynecologic exam and ma mmogram. This is a 64-year-old G2, P2 with an LMP of 2000. She is status post DUNCAN/BSO for benign reasons. She is on low-dose ERT in the form of estradiol patches 0.025 mg changed twice weekly. She has started to try to wean down off of the patches and currently is changing the patch every 4 days instead of twice weekly. She has had some stress during the past year which may have been related to her divorce which was finalized recently. She thinks that as she gets through the changes related to the divorce, she should be able to wean more actively. She does have some hot flashes mostly at night and denies hot flashes during the day. She is otherwise without gynecologic complaints. She continues to only have rare HSV outbreaks. Review of Systems The patient's weight has been stable over the last year. She denies respiratory, cardiac, or G.I. problems. Past Medical History Past Medical History: Cancer, Hyperlipidemia Additional Past Medical History / Comment(s): SKIN CANCER removed from the right arm 2022. Focal osteoporosis(alendronate since 2022). 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 She has no other history of STDs. She is status post DUNCAN BSO for endometriosis. History of Any Multi-Drug Resistant Organisms: None Reported Past Surgical History: Appendectomy, Section, Hysterectomy Additional Past Surgical History / Comment(s): DUNCAN/BSO in 1999. 1. Colonoscopy 2020(next after 5yr). SKIN CANCER REMOVAL RIGHT ELBOW. Past Psychological History: No Psychological Hx Reported Smoking Status: Former smoker Past Alcohol Use History: Occasional (About 3 bottles of wine per week.) Additional Past Alcohol Use History / Comment(s): She quit smoking in 1986. Past Drug Use History: None Reported Additional History: She has been since February 2024. She is currently not seeing anybody at this time and is not sexually active. 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 - Past Family History Father Family Medical History: Coronary Artery Disease (CAD), Dementia Mother Family Medical History: Cancer Additional Family Medical History / Comment(s): Lymphoma. A grandmother had breast cancer. Medications and Allergies Home Medications Medication Instructions Recorded Confirmed Type Calcium Carbonate [Calcium] 600 mg PO DAILY 07/29/18 03/26/23 History Cholecalciferol [Vitamin D3] 1,000 unit PO DAILY 07/29/18 03/26/23 History Celery Seed 1 tab PO DAILY 11/10/19 03/26/23 History Cyanocobalamin [Vitamin B-12] 500 mcg PO DAILY 11/10/19 03/26/23 History Fish Oil/Dha/Epa [Fish Oil 1,200 1 each PO DAILY 11/10/19 03/26/23 History mg Fish Oil] Tumeric 1 tab PO DAILY 11/10/19 03/26/23 History estradioL [Loretta (Twice Weekly) 1 patch TRANSDERM DIRECTED #24 03/26/23 Rx 0.025 mg Patch] patch Allergies Allergy/AdvReac Type Severity Reaction Status Date / Time No Known Allergies Allergy Unverified 06/03/24 10:40 Exam Vital Signs Temp Pulse Resp BP Pulse Ox 06/03/24 10:41 97.9 F 59 L 15 124/80 97 Intake and Output 06/02/24 06/03/24 06/03/24 22:59 06:59 14:59 Other: Weight 58.967 kg Height 5 feet 6 inches, weight 130 pounds, BMI 21.0 This is a well-developed well-nourished white female who is alert and oriented times 3 in no acute distress. HEENT: Within normal limits. NECK: Supple without mass or thyromegaly. CHEST AND LUNGS: Clear to auscultation. HEART: Regular rate and rhythm. BREASTS: Are without mass or discharge. AXILLARY EXAM: Negative for adenopathy. BACK: Negative for CVA tenderness. ABDOMEN: Soft, nontender, without palpable masses. PELVIC EXAM: External genitalia appears normal with mild atrophy. Vagina appears normal with mild atrophy. There is no evidence of prolapse. Bimanual examination is negative for mass or tenderness. RECTAL EXAM: Rectovaginal exam is negative for mass or tenderness and is negative for occult blood. EXTREMITIES: Nontender. IMPRESSION: 1. 64-year-old menopausal female status post DUNCAN/BSO for benign reasons, with normal gynecologic exam. 2. Doing well on low-dose transdermal ERT. Patient is trying to wean from this. 3. Focal osteopenia currently on alendronate for 1 year. PLAN: 1. Pap smears have been discontinued. 2. Self breast awareness was discussed with the patient. We have also discussed symptoms associated with inflammatory breast cancer. 3. Screening mammogram will be done today. 4. Osteoporosis management was discussed. I have stressed the importance of adequate calcium, vitamin D and regular exercise. She will continue on alendronate weekly as prescribed by her PCP. We will plan on repeating the bone density test in 1 year. 5. She will continue to try to wean from her estradiol patch. We have discussed different ways how this can be done. She will continue to do it gradually. She states she will probably wait until there is less stress in her life before actively trying to wean. The electronic prescription for the estradiol patch 0.025 mg changed to every 4 days will be sent to [facility]. 6. She was advised to return in one year for her annual well woman exam.
== END ==
LOC: WWCWWP 10:29
PROVIDERS: ATTEND Obstetrics & Gynecology
DX: Z12.31 Encounter for screening mammogram for malignant neoplasm of breast (principal); M81.0 Age-related osteoporosis without current pathological fracture; Z80.3 Family history of malignant neoplasm of breast; Z90.710 Acquired absence of both cervix and uterus; Z90.722 Acquired absence of ovaries, bilateral; Z87.891 Personal history of nicotine dependence; Z78.0 Asymptomatic menopausal state